=== PATIENT | female | born 1980 | race Caucasian/White ===

== ENCOUNTER 2019-04-03 07:54 | Emergency (ER) | payer BC ==
[~2019-04-03] VITALS: Ht 160 cm; Wt 49.0 kg
[~2019-04-03 07:54] MED LIST: ACYC400T PO
--- NOTE | 2019-04-03 08:04 | NUR ---
URINE SENT TO LAB..
[2019-04-03 08:31] LABS: *BILIRUBIN,URIN NEGATIVE (NEGATIVE); *BLOOD, URINE TRACE LYSED (NEGATIVE); *CLARITY,URINE SLIGHTLY CLOUDY (CLEAR); *COLOR,URINE DARK YELLOW (YELLOW); *KETONES,URINE NEGATIVE (NEGATIVE); *URINE HCG, QUAL NEGATIVE (NEGATIVE); *UROBILINOGEN,URINE 0.2 E.U./dl (NORMAL); LEUKOCYTE ESTERASE ,URINE 1+ (NEGATIVE); NITRITE, URINE NEGATIVE (NEGATIVE); PH,URINE 5.5 (5.0-8.0); UGLUCOSE NEGATIVE (NEGATIVE)
[2019-04-03 08:41] LABS: BACTERIA,URINE FEW /HPF (NONE SEEN); MUCUS,URINE MODERATE /LPF (0-FEW); SQUAMOUS EPITHELIAL CELL,UR MODERATE /HPF (NONE SEEN)
[2019-04-03 08:42] LABS: WBC,URINE 0-3 /HPF (0-3)
--- NOTE | 2019-04-03 08:42 | NUR ---
PATIENT WAS SEEN BY . DC, RX AND FOLLOW UP INSTRUCTIONS GIVEN AND EXPLAINED TO PATIENT WHO STATES SHE UNDERSTANDS ALL INSTRUCTIONS.
== END 2019-04-03 08:59 | disposition home or self-care (01) ==
LOC: ER 07:54
DX: N39.0 Urinary tract infection, site not specified (principal); Z88.2 Allergy status to sulfonamides; Z88.8 Allergy status to other drugs, medicaments and biological substances; Z79.899 Other long term (current) drug therapy
CPT/HCPCS: 84703; 87086; A4663

== ENCOUNTER 2019-09-10 10:42 | Emergency (ER) | payer BC ==
[~2019-09-10] VITALS: Ht 160 cm; Wt 49.9 kg
--- NOTE | 2019-09-10 11:19 | NUR ---
Danya US tech at bedside for scan
--- NOTE | 2019-09-10 12:06 | NUR ---
Patient discharged to home in stable conditon. Written and verbal after care instructions given. Patient verbalizes understanding of instructions. Patient ambulated with stable gait.
[2019-09-10 12:07] VITALS: BP 118/79
== END 2019-09-10 12:07 | disposition home or self-care (01) ==
LOC: ER 10:42
DX: S80.11XA Contusion of right lower leg, initial encounter (principal); I80.01 Phlebitis and thrombophlebitis of superficial vessels of right lower extremity; F41.9 Anxiety disorder, unspecified; Z88.2 Allergy status to sulfonamides; Z88.8 Allergy status to other drugs, medicaments and biological substances; Z79.899 Other long term (current) drug therapy; X58.XXXA Exposure to other specified factors, initial encounter; Y93.89 Activity, other specified; Y92.89 Other specified places as the place of occurrence of the external cause; Y99.8 Other external cause status
CPT/HCPCS: A4663

== ENCOUNTER 2021-04-22 11:43 | Emergency (ER) | payer BC ==
[~2021-04-22] VITALS: Ht 160 cm; Wt 51.7 kg
[~2021-04-22 11:43] MED LIST changes: -ACYC400T PO; +ACYC400T19 PO
[2021-04-22] MEDS ORDERED: LORA0.5T48 PO (12:38)
--- NOTE | 2021-04-22 13:40 | NUR ---
Pt was placed in ER waiting room by charge nurse due to need for bed (ER sat. at this time) and pending d/c.
--- NOTE | 2021-04-22 14:00 | NUR ---
Attempted to give written ACI, pt was not not found in ER waiting room or outside ER. Pt was given verbal ACI by Dr.Janoo wesley.
== END 2021-04-22 14:12 | disposition home or self-care (01) ==
LOC: ER 11:44
DX: M25.512 Pain in left shoulder (principal); F41.9 Anxiety disorder, unspecified; Z79.899 Other long term (current) drug therapy
CPT/HCPCS: 73030; A4663